=== PATIENT | male | born 1955 | race Caucasian/White ===

== ENCOUNTER 2023-09-08 01:33 | Inpatient (IN) | payer MEDICARE, OTHER ==
[2023-09-08] MEDS ORDERED: Ondansetron ODT 4 MG TAB PO PRN (02:41)
[2023-09-08] MEDS ORDERED: Acetaminophen 650 MG Suppository PR PRN (02:41)
[2023-09-08 02:46] VITALS: BMI 25.8
[2023-09-08] MEDS: Lactated Ringer's 1,000 ML IV SCH (03:17)
[2023-09-08] MEDS: Acetaminophen 325 MG TAB PO PRN (03:18)
[2023-09-08] MEDS: Ondansetron PF 4 MG/2 ML Vial IVP PRN (03:20)
[2023-09-08 05:14] LABS: #Basophils 0.03 10x3/uL (0.0-0.2); %Basophils 0.3 % (0.0-1.0); %Eosinophils 0.4 % (0.0-10.0); %Lymphocytes 8.9 % (21.0-51.0); %Monocytes 4.7 % (0.0-10.0); %Neutrophils 85.5 % (42.0-75.0); Hematocrit 45.4 % (42.0-52.0); Hemoglobin 15.2 g/dL (14.0-18.0); Mean Corpuscular HGB CONC 33.5 g/dL (32.0-36.0); Mean Corpuscular Hemoglobin 30.4 pg (27.0-31.0); Mean Corpuscular Volume 90.8 fL (78.0-98.0); Mean Platelet Volume 9.9 fL (7.4-10.4); Platelet Count 290 10x3/uL (130-400); RBC Distribution Width 12.7 % (11.5-14.5)
[2023-09-08 05:42] LABS: ALT (SGPT) 26 U/L (8-55); AST (SGOT) 23 U/L (5-34); Albumin 4.1 g/dL (3.4-4.8); Alkaline Phosphatase 74 U/L (40-110); Anion Gap 19 mmol/L (10-20); BUN (Urea Nitrogen) 23 mg/dL (8.4-25.7); Bilirubin, Total 1.1 mg/dL (0.2-1.2); Calc. Creatinine Clearance 66 mL/min (70-130); Calcium 10.2 mg/dL (7.8-10.44); Carbon Dioxide 25 mmol/L (23-31); Chloride 101 mmol/L (98-107); Estimated GFR 69; Glucose 176 mg/dL (80-115); Potassium 4.3 mmol/L (3.5-5.1); Protein, Total 7.1 g/dL (5.8-8.1); Sodium 141 mmol/L (136-145)
[2023-09-08] MEDS: fentaNYL 50 mcg/mL 1 mL Vial SLOW IVP SCH (06:19)
[2023-09-08 08:41] LABS: Lactic Acid 1.3 mmol/L (0.5-2.2)
[2023-09-08] MEDS: Famotidine/PF 20 mg/2ml Vial SLOW IVP SCH (08:53)
[2023-09-08] MEDS: Famotidine 20 MG TAB PO SCH (08:55)
[2023-09-08 11:24] LABS: Bilirubin Negative (Negative); Blood, Urine Negative (Negative); Glucose, Urine (Dipstick) >=1000 mg/dL (Negative); Ketone, Urine 40 mg/dL (Negative); Leukocyte Negative (Negative); Nitrite Negative (Negative); Protein, Urine (Dipstick) Negative (Neg-Trace); Specific Gravity, Urine 1.015 (1.005-1.030); Urobilinogen 0.2 mg/dL (Less than 2)
[2023-09-08 11:28] LABS: Bacteria/HPF None Seen HPF (None Seen); CAUTI Indications for Culture Dysuria,urgency,freq; RBC/HPF 0-3 HPF (0-3); Squamous Epithelial None Seen HPF (0-3); WBC/HPF 0-3 HPF (0-3)
[2023-09-08 11:30] LABS: Clarity Clear (Clear)
[2023-09-08 11:33] LABS: Urine Culture Reflex No No
[2023-09-08] MEDS: Morphine 4 MG/ML VIAL SLOW IVP PRN (13:02)
[2023-09-09 05:19] LABS: #Basophils 0.04 10x3/uL (0.0-0.2); %Basophils 0.6 % (0.0-1.0); %Eosinophils 4.6 % (0.0-10.0); %Lymphocytes 21.6 % (21.0-51.0); %Monocytes 10.5 % (0.0-10.0); %Neutrophils 62.6 % (42.0-75.0); Hematocrit 39.6 % (42.0-52.0); Hemoglobin 12.9 g/dL (14.0-18.0); Mean Corpuscular HGB CONC 32.6 g/dL (32.0-36.0); Mean Corpuscular Volume 95.2 fL (78.0-98.0); Mean Platelet Volume 10.4 fL (7.4-10.4); Platelet Count 260 10x3/uL (130-400); RBC Distribution Width 12.8 % (11.5-14.5); Red Blood Cell (RBC) Count 4.16 mill/uL (4.70-6.10)
[2023-09-09 05:46] LABS: ALT (SGPT) 20 U/L (8-55); AST (SGOT) 19 U/L (5-34); Albumin 3.3 g/dL (3.4-4.8); Alkaline Phosphatase 53 U/L (40-110); Anion Gap 17 mmol/L (10-20); BUN (Urea Nitrogen) 24 mg/dL (8.4-25.7); Bilirubin, Total 1.2 mg/dL (0.2-1.2); Calc. Creatinine Clearance 63 mL/min (70-130); Carbon Dioxide 25 mmol/L (23-31); Chloride 105 mmol/L (98-107); Estimated GFR 64; Globulin 2.5 g/dL (2.4-3.5); Glucose 106 mg/dL (80-115); Potassium 4.2 mmol/L (3.5-5.1); Protein, Total 5.8 g/dL (5.8-8.1); Sodium 143 mmol/L (136-145)
[2023-09-10] MEDS ORDERED: MD-Gastroview 120 ML BOT ONE (07:32)
[2023-09-10] MEDS: Lactated Ringer's 1,000 ML IV SCH (07:51)
[2023-09-10 08:34] LABS: Anion Gap 16 mmol/L (10-20); BUN (Urea Nitrogen) 18 mg/dL (8.4-25.7); Calc. Creatinine Clearance 71 mL/min (70-130); Calcium 9.5 mg/dL (7.8-10.44); Carbon Dioxide 26 mmol/L (23-31); Chloride 103 mmol/L (98-107); Estimated GFR 75; Glucose 102 mg/dL (80-115); Potassium 4.4 mmol/L (3.5-5.1); Sodium 141 mmol/L (136-145)
[2023-09-10] MEDS: Tamsulosin HCl 0.4 MG CAP PO SCH (09:12)
[2023-09-10] MEDS: Atorvastatin Calcium 40 MG TAB PO SCH (09:12)
[2023-09-10] MEDS: Ketorolac Tromethamine 30 MG (1 mL) VIAL IVP PRN (11:49)
[2023-09-11 05:04] LABS: #Basophils 0.04 10x3/uL (0.0-0.2); %Basophils 0.6 % (0.0-1.0); %Lymphocytes 16.3 % (21.0-51.0); %Monocytes 10.2 % (0.0-10.0); %Neutrophils 68.6 % (42.0-75.0); Hematocrit 38.1 % (42.0-52.0); Hemoglobin 12.6 g/dL (14.0-18.0); Mean Corpuscular HGB CONC 33.1 g/dL (32.0-36.0); Mean Corpuscular Hemoglobin 30.4 pg (27.0-31.0); Mean Platelet Volume 9.7 fL (7.4-10.4); Platelet Count 241 10x3/uL (130-400); RBC Distribution Width 12.6 % (11.5-14.5); Red Blood Cell (RBC) Count 4.14 mill/uL (4.70-6.10)
[2023-09-11 05:40] LABS: Anion Gap 17 mmol/L (10-20); BUN (Urea Nitrogen) 22 mg/dL (8.4-25.7); Calc. Creatinine Clearance 68 mL/min (70-130); Calcium 8.9 mg/dL (7.8-10.44); Carbon Dioxide 25 mmol/L (23-31); Chloride 106 mmol/L (98-107); Estimated GFR 71; Glucose 94 mg/dL (80-115); Potassium 4.1 mmol/L (3.5-5.1); Sodium 144 mmol/L (136-145)
[2023-09-11 07:52] VITALS: BP 128/74; TEMP 97.9
[2023-09-11] MEDS: Enoxaparin 40 MG (0.4 mL) SYRINGE SC SCH (08:20)
== END 2023-09-11 11:18 | disposition home or self-care (01) | DRG 390 ==
LOC: MSONC 02:21 → OBSVTOIN 07:43
PROVIDERS: ADMIT Student in an Organized Health Care Education/Training Program; ATTEND Internal Medicine
DX: K56.50 Intestinal adhesions [bands], unspecified as to partial versus complete obstruction (principal); E11.9 Type 2 diabetes mellitus without complications; E78.5 Hyperlipidemia, unspecified; K21.9 Gastro-esophageal reflux disease without esophagitis; I10 Essential (primary) hypertension; Z79.899 Other long term (current) drug therapy; Z90.49 Acquired absence of other specified parts of digestive tract
CPT/HCPCS: 36415; 36416; 74250; 80048; 80053; 81001; 83605; 85025; J1885; J2270; J2405; J3010; J7120; Q9963; S0028